=== PATIENT | male | born 1945 | race Hispanic/Latino ===

== ENCOUNTER 2023-07-14 09:57 | Day surgery (SDC) | payer MEDICARE, SELFPAY ==
--- NOTE | 2023-07-14 10:15 | PCM.HP.BLA ---
History and Physical Date of Admission: 07/14/23 7 M who presents to the office today for a consult. PCP OV 12.31.22 to established care. Previously diagnosed with GI who diagnosed with Crohn?s disease. Previous PCP note indicates he is well managed with use of Lialda.?Colonoscopy 02.26.21 out of state facility?5mm TA polyp; somewhat worse sigmoid stricture. Biopsy notes chronic RS colitis without dysplasia.?Stool?Calprotectin: 01.03.18 859; 08.10.18 521; 01.21.19 129; 12.28.20 387? Today reports that he continues to have some diarrhea and urgency. is concerned that he has been on the Lialda too long. Patient believes he is stable enough to go off of it. Denies any recent bloodwork. Has not had colonoscopy since 2020. ROS Const Constitutional: No fatigue, fever(s), frequent falls, headache(s) or weight change ENT ENT: No headache(s) or difficulty swallowing Cardio Cardiology: No leg pain with exertion Gastro GI: Positive for diarrhea; No abdominal pain, bloating, change in bowel habits, constipation, heartburn, difficulty swallowing, Vomiting blood/hematemesis, Blood in stool, nausea/dyspepsia or vomiting Musc Musculoskeletal: No abnormal gait, joint pain, back pain, joint swelling, muscle cramps, muscle weakness, numbness, stiffness, tingling, Arthritis, sciatica, leg pain at night or leg pain with exertion Skin Skin: No dry skin, lesions, itchy eyes or rash Neuro Neurology: No abnormal gait, dizziness, frequent falls, headache(s), numbness, tingling, tremor(s), Increased tone in limbs, paralysis or seizures Psych Psychiatric: No anxiety, No depression, No paranoia, No Behavioral Problems, No Compulsive Behavior, No hyperactivity, No inattentiveness, No obsessions/compulsions, No Temper Tantrums and No suicidal ideation Endo Endocrine: No fatigue or weight change Aller/Imm Allergy/Immunologic: No itchy eyes Gabe/Lymp Hematologic/Lymphatic: No easy bleeding or easy bruising Quality Reporting Tobacco Screening ([facility] 138) Smoking Status: Former smoker Assessment and Plan Assessment and Plan (1) Crohn's colitis: Status: Acute Qualifiers: Digestive disease complication type: without complication Qualified Code(s): K50.10 - Crohn's disease of large intestine without complications Plan He has a longstanding history of colonic Crohn's disease. It is unknown if he has small bowel Crohn's disease. We will check ESR, CRP and fecal lactoferrin, stool WBCs, stool for enteric pathogens and C. difficile. He will also continue current medicines as prescribed. I have examined the patient and the H&P has been reviewed. There are no clinical changes since date of exam.
[2023-07-14] MEDS: Lactated Ringers 1,000 ML 15 ML IV (10:32)
[2023-07-14 10:33] VITALS: BP 121/86; PULSE 88; RESP 18; TEMP 37; O2SAT 99; BMI 34.3
--- NOTE | 2023-07-14 11:00 | COLBX_PTH ---
PATIENT: SIA MENDIOLA LOC: EN U#:[id number] AGE/SX: 77/M ROOM: RE07/14/[address]: Dr. Enmanuel Michele DO : 1945 BED: DIS: 07/14/2023 SPEC #: [id number] RECD: 07/14/23 14:26 STATUS: CASSY DEVEN #: [id number] WILLAM: 07/14/23 11:[address]: Enmanuel Michele DEPT: SURGICAL PATHOLOGY RECD BY: Zoraida Auguste ENTERED: 07/15/23 09:19 SP TYPE: COLON BX OTHR DR: Dr. Britton Torres MD Tissues: A - Ileum, NOS B - Ascending colon C - Transverse colon D - Descending colon E - Sigmoid colon biopsy F - Rectum, NOS G - Sigmoid colon biopsy H - Anal region Procedures: Surgery Specimen Level IV HEADER OPERATION: Colonoscopy with biopsy PRE-OP DIAGNOSIS: Crohn's TISSUE SUBMITTED: A - Terminal ileum biopsy, B - Ascending colon biopsy, C - Transverse colon biopsy, D - Descending colon biopsy, E - Sigmoid colon biopsy, F - Rectal biopsy, G - Sigmoid stricture, H - Anal biopsy MICROSCOPIC DIAGNOSIS A. Terminal ileum, biopsy: No pathologic change. B. Ascending colon, biopsy: Focal acute colitis. C. Transverse colon, biopsy: No pathologic change. D. Descending colon, biopsy: No pathologic change. E. Sigmoid colon, biopsy: No pathologic change. F. Rectum, biopsy: Focal acute colitis. G. Sigmoid stricture, biopsy: Ulceration with associated acute and chronic inflammation, granulation and fibrinopurulent exudate. H. Anus, biopsy: Focal acute colitis. Fibrinopurulent material. AM:shahla 07/16/2023 MICROSCOPIC DESCRIPTION Slides are reviewed. GROSS DESCRIPTION A - Received in fixative is one container labeled with the patient's name and designated terminal ileum. The specimen consists of two irregular fragments of light devlin soft tissue that in aggregate measure 0.5 x 0.3 x 0.1 cm. The specimen is totally submitted in one cassette. B - Received in fixative is one container labeled with the patient's name and designated ascending colon. The specimen consists of multiple irregular fragments of light devlin soft tissue that in aggregate measure 1.0 x 0.3 x 0.1 cm. The specimen is totally submitted in one cassette. C - Received in fixative is one container labeled with the patient's name and designated transverse colon. The specimen consists of multiple irregular fragments of light devlin soft tissue that in aggregate measure 1.0 x 0.2 x 0.1 cm. The specimen is totally submitted in one cassette. D - Received in fixative is one container labeled with the patient's name and designated descending colon. The specimen consists of multiple irregular fragments of light devlin soft tissue that in aggregate measure 1.0 x 0.2 x 0.1 cm. The specimen is totally submitted in one cassette. E - Received in fixative is one container labeled with the patient's name and designated sigmoid colon. The specimen consists of two irregular fragments of light devlin soft tissue that in aggregate measure 0.6 x 0.5 x 0.1 cm. The specimen is totally submitted in one cassette. F - Received in fixative is one container labeled with the patient's name and designated rectal biopsy. The specimen consists of multiple irregular fragments of light devlin soft tissue that in aggregate measure 1.0 x 0.2 x 0.1 cm. The specimen is totally submitted in one cassette. G - Received in fixative is one container labeled with the patient's name and designated sigmoid stricture. The specimen consists of multiple irregular fragments of light devlin soft tissue that in aggregate measure 1.0 x 0.5 x 0.1 cm. The specimen is totally submitted in one cassette. H - Received in fixative is one container labeled with the patient's name and designated anal biopsy. The specimen consists of one irregular fragment of light devlin soft tissue that measures 0.5 x 0.5 x 0.1 cm. The specimen is totally submitted in one cassette. / AM:shahla 07/15/2023 TC:2 CPT: 06972 x8
[2023-07-14 11:02] LABS: Bedside Glucose 150 mg/dL (74-106)
[2023-07-14 11:56] VITALS: BP 121/86; BP 128/72; PULSE 61; RESP 16; TEMP 36.4; O2SAT 92
--- NOTE | 2023-07-14 11:57 | OP.COLON_ITS ---
Patient Name: iFdel Harrison Procedure Date: 07/14/2023 11:24 AM Date of : 1945 Age: 77 Procedure: Colonoscopy Indications: Crohn's disease of the small bowel and colon Providers: Enmanuel Michele DO Referring MD: Enmanuel Michele DO Medicines: Monitored Anesthesia Care Patient Profile: This is a 77 year old male. Refer to note in patient chart for documentation of history and physical. Last Colonoscopy: date unknown. Unable to locate last colonoscopy report. Complications: No immediate complications. Procedure: Pre-Anesthesia Assessment: - Prior to the procedure, a History and Physical was performed, and patient medications and allergies were reviewed. The patient is competent. The risks and benefits of the procedure and the sedation options and risks were discussed with the patient. All questions were answered and informed consent was obtained. Patient identification and proposed procedure were verified by the physician in the pre-procedure area. Mental Status Examination: alert and oriented. Airway Examination: normal oropharyngeal airway and neck mobility. Prophylactic Antibiotics: The patient does not require prophylactic antibiotics. Prior Anticoagulants: The patient has taken no anticoagulant or antiplatelet agents. After reviewing the risks and benefits, the patient was deemed in satisfactory condition to undergo the procedure. The anesthesia plan was to use monitored anesthesia care (MAC). Immediately prior to administration of medications, the patient was re-assessed for adequacy to receive sedatives. The heart rate, respiratory rate, oxygen saturations, blood pressure, adequacy of pulmonary ventilation, and response to care were monitored throughout the procedure. The physical status of the patient was re-assessed after the procedure. After I obtained informed consent, the scope was passed under direct vision. Throughout the procedure, the patient's blood pressure, pulse, and oxygen saturations were monitored continuously. The Colonoscope was introduced through the anus and advanced to the terminal ileum. The colonoscopy was performed without difficulty. The patient tolerated the procedure well. The quality of the bowel preparation was adequate. The terminal ileum, ileocecal valve, appendiceal orifice, and rectum were photographed. Scope In: 11:36:39 AM Scope Withdrawal Time 0 hours 11 minutes 18 seconds Scope Out: 11:50:19 AM Total Procedure Duration Time 0 hours 13 minutes 40 seconds Findings: The perianal and digital rectal examinations were normal. The Simple Endoscopic Score for Crohn's Disease was determined based on the endoscopic appearance of the mucosa in the following segments: - Ileum: Findings include aphthous ulcers less than 0.5 cm in size, less than 10% ulcerated surfaces, less than 50% of surfaces affected and no narrowings. Segment score: 3. - Right Colon: Findings include no ulcers present, no ulcerated surfaces, 50-75% of surfaces affected and no narrowings. Segment score: 2. - Transverse Colon: Findings include no ulcers present, no ulcerated surfaces, no affected surfaces and no narrowings. Segment score: 0. - Left Colon: Findings include large ulcers 0.5-2 cm in size, 10-30% ulcerated surfaces, less than 50% of surfaces affected and a single narrowing that can be passed. Segment score: 6. - Rectum: Findings include no ulcers present, no ulcerated surfaces, no affected surfaces and no narrowings. Segment score: 0. - Total SES-CD aggregate score: 11. Biopsies were taken with a cold forceps for histology. Verification of patient identification for the specimen was done. Estimated blood loss was minimal. Impression: - Simple Endoscopic Score for Crohn's Disease: 11, mucosal inflammatory changes secondary to Crohn's disease. Biopsied. Recommendation: - Discharge patient to home. - Resume previous diet. - Continue present medications. - Await pathology results. - Repeat colonoscopy in 1 year for surveillance. Procedure Code(s): --- Professional --- 10329, Colonoscopy, flexible; with biopsy, single or multiple CPT copyright 2021 [employer]. All rights reserved. The codes documented in this report are preliminary and upon dishwashing machine operator review may be revised to meet current compliance requirements. Enmanuel Michele DO 07/14/2023 11:56:39 AM This report has been signed electronically. Number of Addenda: 0 Note Initiated On: 07/14/2023 11:24 AM
--- NOTE | 2023-07-14 11:57 | OP.CCLET_ITS ---
07/14/2023 Britton Torres Re : Colonoscopy procedure for Fidel Harrison Dear Brian This procedure was performed on Friday, July 14, 2023. My impressions and recommendations are as follows: Impressions : - Simple Endoscopic Score for Crohn's Disease: 11, mucosal inflammatory changes secondary to Crohn's disease. Biopsied. Recommendations : - Discharge patient to home. - Resume previous diet. - Continue present medications. - Await pathology results. - Repeat colonoscopy in 1 year for surveillance. My findings are described in the full procedure note, which is enclosed. If I can be of further assistance, please feel free to contact me at . Sincerely, Enmanuel Michele, 07/14/2023 11:56:39 AM This report has been signed electronically.
[2023-07-14 12:00] VITALS: BP 117/61; BP 121/86; PULSE 76; RESP 16; O2SAT 95
[2023-07-14 12:05] VITALS: BP 121/86; BP 133/46; PULSE 67; RESP 16; O2SAT 98
[2023-07-14 12:10] VITALS: BP 121/86; BP 129/61; PULSE 64; RESP 16; TEMP 36.8; O2SAT 100
[2023-07-14 12:34] VITALS: BP 121/86
== END 2023-07-14 12:49 | disposition home or self-care (01) ==
LOC: EN 10:02 → AC 10:02
PROVIDERS: PCP Internal Medicine; Referring Provider Internal Medicine Gastroenterology; Visit Provider Internal Medicine Gastroenterology
PROC: 0DJD8ZZ Inspection of Lower Intestinal Tract, Via Natural or Artificial Opening Endoscopic (ICD-10-PCS; CPT 45378; principal; 2023-07-14 10:55)
DX: K50.10 Crohn's disease of large intestine without complications (principal); Z79.4 Long term (current) use of insulin; E11.9 Type 2 diabetes mellitus without complications; E78.5 Hyperlipidemia, unspecified; I10 Essential (primary) hypertension; Z87.891 Personal history of nicotine dependence; Z79.82 Long term (current) use of aspirin; Z79.84 Long term (current) use of oral hypoglycemic drugs; Z79.899 Other long term (current) drug therapy
CPT/HCPCS: 45380; 82962; 88305; J7120; J2405

== ENCOUNTER → 2023-08-15 | Outpatient (CLI) | payer MEDICARE, SELFPAY ==
--- NOTE | 2023-08-15 15:15 | CT_ITS ---
STUDY: CT ABDOMEN AND PELVIS WITH CONTRAST REASON FOR EXAM: Male, 77 years old. Crohn''s disease RADIATION DOSAGE (If Supplied By Facility): CTDIvol = ( 17.78 ) mGy, DLP = ( 1180.73 ) mGycm TECHNIQUE: Transaxial images were obtained from the dome of the diaphragm to the symphysis pubis with oral contrast. ml of Gastrografin and amp; 100mL Isovue-300 contrast was administered. Sagittal and coronal images were reconstructed. Individualized dose optimization techniques were used for this CT. COMPARISON: None. FINDINGS: There are chronic interstitial fibrotic changes of the lung bases. The visualized portions of the heart are within normal limits. No demonstrated abnormal bowel dilatation or small bowel obstruction. No free air or abscess or fluid collections are present. No inflammatory stranding is seen around the bowel loops. No visualized bowel wall thickening or alternating areas of dilatation and narrowing AKA skip lesions on the current study. No colonic diverticula are present. Normal liver. Normal gallbladder and extrahepatic biliary system. Normal spleen. Normal pancreas. Normal bilateral adrenal glands. Several small cysts are scattered throughout the left kidney which do not requiring additional imaging. Mild bilateral perinephric stranding is present likely due to chronic inflammation. No solid masses of the kidneys are present. No visualized hydronephrosis. No large radiopaque stones are present. Normal visualized stomach. Normal small intestine. Normal colon. The appendix is visualized and appears normal. There is diffuse atherosclerotic calcification of the abdominal aorta, without a demonstrated aneurysm. Normal inferior vena cava. Normal retroperitoneum. Normal urinary bladder. Normal abdominal wall. There are diffuse degenerative changes of the visualized lumbar spine. CT/Abdomen/Pelvis WITH Contrast IMPRESSION: 1. No demonstrated abnormal bowel dilatation or small bowel obstruction. No free air or abscess or fluid collections are present. No inflammatory stranding is seen around the bowel loops. No visualized bowel wall thickening or alternating areas of dilatation and narrowing AKA skip lesions on the current study. No colonic diverticula are present. Electronically Signed: Daniel Corona MD at 9:51 EST ,
[2023-08-15 15:33] LABS: CREATININE FINGERSTICK < 0.9 mg/dL (0.70-1.30); EGFR FINGERSTICK > 60.0000 mL/min (>60)
== END | disposition home or self-care (01) ==
PROVIDERS: PCP Internal Medicine; Referring Provider Internal Medicine Gastroenterology; Visit Provider Internal Medicine Gastroenterology
DX: K50.10 Crohn's disease of large intestine without complications (principal)
CPT/HCPCS: 74177; Q9967

== ENCOUNTER → 2024-02-16 | Outpatient (CLI) | payer MEDICARE, SELFPAY ==
[2024-02-16 15:50] LABS: Hemoglobin A1c 7.4 % (3.8-5.6)
[2024-02-16 16:07] LABS: Rubella IgG Reactive (Nonreactive)
[2024-02-18 14:10] LABS: Anti-Centromere B Ab >8.0 AI (0.0-0.9); Anti-Chromatin 0.2 AI (0.0-0.9); Anti-Jo <0.2 AI (0.0-0.9); Anti-Mitochondrial AB <20.0 Units (0.0-20.0); Anti-Scleroderma-70 AB <0.2 AI (0.0-0.9); Anti-dsDNA Ab <1 IU/mL (0-9); RNP Ab <0.2 AI (0.0-0.9); SJOGREN'S Anti-SS-A test < 0.2 AI (0.0-0.9); SJOGREN'S Anti-SS-B test < 0.2 AI (0.0-0.9); Smith Ab <0.2 AI (0.0-0.9)
[2024-02-19 21:07] LABS: Anti-Smooth Muscle ABS 4 Units (0-19); B. pertussis IgG 3.56 index (0.00-0.94); Mumps Antibody, IgM < 0.80 AU (0.00-0.79); QNTFERON TB Mitogen Value > 10.00 IU/mL (.); QNTFERON TB Nil Value 0.04 IU/mL (.); QNTFERON TB1+ Ag Value 0.07 IU/mL (.); QNTFERON TB2+ Ag Value 0.07 IU/mL (.); QNTIFERON TB Positive Criteria Negative (Negative); V-Zoster IgG (Immunity) 1265 index (Immune >165)
== END | disposition home or self-care (01) ==
PROVIDERS: Internal Medicine Gastroenterology; PCP Internal Medicine; Referring Provider Internal Medicine; Visit Provider Internal Medicine
DX: E11.69 Type 2 diabetes mellitus with other specified complication (principal)
CPT/HCPCS: 36415; 83036; 83516; 86225; 86235; 86480; 86615; 86735; 86762; 86787

== ENCOUNTER → 2024-04-06 | Outpatient (CLI) | payer MEDICARE, SELFPAY ==
[2024-04-06 12:49] VITALS: PULSE 104; PULSE 107; PULSE 74; PULSE 82; PULSE 86; PULSE 90; PULSE 94; PULSE 95; O2SAT 92; O2SAT 93; O2SAT 94; O2SAT 98
--- NOTE | 2024-04-06 12:52 | CPS ---
PATIENT ARRIVED BY WHEELCHAIR AND USED HIS CANE FOR THE WALK TEST. HE DENIED ANY SIGNIFICANT SHORTNESS OF BREATH DURING TESTING. HE TOOK 1 SHORT REST BREAK FOR LEG WEAKNESS/FATIGUE HALF WAY THROUGH TESTING AND CARRIED CONVERSATION THROUGHOUT TESTING. HR RECOVERED QUICKLY UPON REST. TESTING WAS DONE WITH PATIENT ON ROOM AIR.
--- NOTE | 2024-04-07 09:35 | WT_ITS ---
PSN 6 Minute Walk Test 6 Minute Walk Test 6 Minute Walk Test: 6 Minute Walk Test PSN:6-Minute Walk Test Start: 04/06/24 12:49 Freq: Status: Active Protocol: RESP.6MINW Document 04/06/24 12:49 COUNT INCLUDES THE [facility] (Rec: 04/06/24 12:57 COUNT INCLUDES THE [facility] [id number]) 6 Minute Walk Test Date Performed 04/06/24 Time Performed 12:30 Height 5 ft 8 in Weight: 223 lb Weight in Pounds 223.[address]: Dinh Reyes Assistive device used: Cane Pre-test Oxygen Delivery Method Room Air Pulse Ox (%) 98 Pulse Rate (60-100 beats/min) 74 Dyspnea Sae Scale (0-10) 0 1st minute Oxygen Delivery Method Room Air Pulse Ox (%) 94 Pulse Rate (60-100 beats/min) 86 Dyspnea Sae Scale (0-10) 0 Number of Rests Taken 0 2nd minute Oxygen Delivery Method Room Air Pulse Ox (%) 93 Pulse Rate (60-100 beats/min) 90 Dyspnea Sae Scale (0-10) 0 Number of Rests Taken 0 3rd minute Oxygen Delivery Method Room Air Pulse Ox (%) 93 Pulse Rate (60-100 beats/min) 94 Dyspnea Sae Scale (0-10) 1 Number of Rests Taken 1 4th minute Oxygen Delivery Method Room Air Pulse Ox (%) 94 Pulse Rate (60-100 beats/min) 95 Dyspnea Sae Scale (0-10) 1 Number of Rests Taken 0 5th minute Oxygen Delivery Method Room Air Pulse Ox (%) 94 Pulse Rate (60-100 beats/min) 104 H Dyspnea Sae Scale (0-10) 1 Number of Rests Taken 0 6th minute Oxygen Delivery Method Room Air Pulse Ox (%) 92 Pulse Rate (60-100 beats/min) 107 H Dyspnea Sae Scale (0-10) 2 Number of Rests Taken 0 Post-test Oxygen Delivery Method Room Air Pulse Ox (%) 98 Pulse Rate (60-100 beats/min) 82 Dyspnea Sae Scale (0-10) 0 Full Laps Walked 9 Partial Lap, Number of Tiles Walked 26 Total Distance Walked (ft) 557 04/06/24 12:52 Cardiopulmonary Services by Isamar Grant PATIENT ARRIVED BY WHEELCHAIR AND USED HIS CANE FOR THE WALK TEST. HE DENIED ANY SIGNIFICANT SHORTNESS OF BREATH DURING TESTING. HE TOOK 1 SHORT REST BREAK FOR LEG WEAKNESS/FATIGUE HALF WAY THROUGH TESTING AND CARRIED CONVERSATION THROUGHOUT TESTING. HR RECOVERED QUICKLY UPON REST. TESTING WAS DONE WITH PATIENT ON ROOM AIR. Initialized on 04/06/24 12:52 - END OF NOTE Interpretation Interpretation: The patient ambulated 557 feet over the course of 6 minutes beginning on room air with the use of a cane. Pretesting oxygen saturation was noted to be 98% on room air. With ambulation, the [place] oxygen saturation was 92%. This represents a significant exertional oxygen desaturation. Recommendations Recommendations: There is no indication for the use of supplemental oxygen at this time. However, close interval follow-up was recommended, given the degree of oxygen desaturation noted during this study.
== END | disposition home or self-care (01) ==
LOC: PSN 12:22
PROVIDERS: PCP Internal Medicine; Referring Provider Internal Medicine Critical Care Medicine; Visit Provider Internal Medicine Critical Care Medicine
DX: J44.9 Chronic obstructive pulmonary disease, unspecified (principal)
CPT/HCPCS: 94618

== ENCOUNTER 2024-09-01 11:25 | Day surgery (SDC) | payer MEDICARE, SELFPAY ==
--- NOTE | 2024-09-01 | COLBX_PTH ---
PATIENT: SIA MENDIOLA LOC: EN U#:[id number] AGE/SX: 78/M ROOM: RE09/01/[address]: Dr. Enmanuel Michele DO : 1945 BED: DIS: 09/01/2024 SPEC #: [id number] RECD: 09/01/24 14:13 STATUS: CASSY CARVALHO #: [id number] WILLAM: 09/01/24 00:[address]: Enmanuel Michele DEPT: SURGICAL PATHOLOGY RECD BY: Chris West ENTERED: 09/01/24 14:14 SP TYPE: COLON BX OTHR DR: Dr. Britton Torres MD Tissues: A - COLON BIOPSY B - Sigmoid colon biopsy C - Right colon D - Transverse colon E - Left colon F - Rectum, NOS Procedures: Surgery Specimen Level IV HEADER OPERATION: Colonoscopy with biopsy and polypectomy and dilation PRE-OP DIAGNOSIS: Crohn's colitis TISSUE SUBMITTED: A- Colonic stricture biopsy, B- Sigmoid polyp, C- Right side of colon biopsy, D- Transverse colon biopsy, E- Left side colon biopsy, F- Rectum biopsy MICROSCOPIC DIAGNOSIS A. Colonic stricture, biopsy: Focal active colitis. See comment. B. Sigmoid polyp, biopsy: Inflammatory polyp with ulceration, granulation associated with acute and chronic inflammation. See comment. C. Right side of colon, biopsy: Chronic active colitis pattern of injury with minimal activity. No evidence of dysplasia. See comment. D. Transverse colon, biopsy: Chronic active colitis pattern of injury with mild activity. See comment. E. Left side colon, biopsy: Chronic active colitis pattern of injury with focal ulceration, granulation and acute and chronic inflammation. No evidence of dysplasia. F. Rectum, biopsy: Chronic colitis pattern of injury with no activity. No evidence of dysplasia. Scott 09/03/2024 COMMENT A. Sections show focal cryptitis with glandular distortion. No transmural lymphoid aggregates are seen and no fissuring ulcers are identified. Clinical correlation is suggested. B. Sections show hyperplastic epithelium with ulceration and granulation and vascular ectasia. No evidence of dysplasia. Clinical correlation is suggested. C, D. Rare crypt abscess and cryptitis is identified. No transmural lymphoid aggregates are seen and no granulomas are identified. There is no evidence of dysplasia. MICROSCOPIC DESCRIPTION Slides are reviewed. GROSS DESCRIPTION A. Received in fixative is one container labeled with the patient's name and designated Colonic stricture biopsy. The specimen consists of one irregular fragment of light devlin soft tissue that measures 0.3 x 0.2 x 0.1 cm. The specimen is totally submitted in one cassette. B. Received in fixative is one container labeled with the patient's name and designated Sigmoid polyp. The specimen consists of one irregular fragment of light devlin soft tissue that measures 1.0 x 0.5 x 0.3 cm. The specimen is totally submitted in one cassette. C. Received in fixative is one container labeled with the patient's name and designated Right side of colon biopsy. The specimen consists of multiple irregular fragments of light devlin soft tissue that in aggregate measure 2.0 x 0.3 x 0.1 cm. The specimen is totally submitted in one cassette. D. Received in fixative is one container labeled with the patient's name and designated Transverse colon biopsy. The specimen consists of multiple irregular fragments of light devlin soft tissue that in aggregate measure 1.0 x 0.6 x 0.1 cm. The specimen is totally submitted in one cassette. E. Received in fixative is one container labeled with the patient's name and designated Left side of colon biopsy. The specimen consists of multiple irregular fragments of light devlin soft tissue that in aggregate measure 1.0 x 0.3 x 0.1 cm. The specimen is totally submitted in one cassette. F. Received in fixative is one container labeled with the patient's name and designated Rectum biopsy. The specimen consists of multiple irregular fragments of light devlin soft tissue that in aggregate measure 1.0 x 0.3 x 0.1 cm. The specimen is totally submitted in one cassette. 09/01/2024 TC:2 [facility]:[id number]
[2024-09-01 11:44] VITALS: BP 135/66; PULSE 83; RESP 16; TEMP 36.8; O2SAT 97; BMI 33.3
--- NOTE | 2024-09-01 12:30 | HP.PCM_ITS ---
History and Physical Date of Admission: 09/01/24 SIA MENDIOLA, is a 78 M who presents to the office today for follow up. PCP OV 12.31.22 to established care. Previously diagnosed with GI who diagnosed with Crohn?s disease. Previous PCP note indicates he is well managed with use of Lialda. ? Colonoscopy 02.26.21 [place] [facility] 5mm TA polyp; somewhat worse sigmoid stricture. Biopsy notes chronic RS colitis without dysplasia. ? Stool Calprotectin: 01.03.18 859; 11.18 521; 01.21. 129; 12.28.20 387 *[facility] established 04.18.23 with loose stools and urgency. has concerns rega rding extended length of lialda use but he does not feel he is stable enough to stop. Colonoscopy 07.14.23 Active Crohn?s disease of ileum (segment score 3), right colon (segment score 2), transverse colon (segment score 0), left colon (segment score 6), rectum (segment score 0) with total SES-CD aggregate score 11 with active colitis seen on pathology. Contact 08.04.23 with results and need for biochemical, stool and imaging Biochemical [facility] CBC (anemic), CMP, CRP, LDH, ANCA, GAME, CASS (atypical restricted mobility), celiac, Entyvio ab without pertinent abnormality ESR H37, TOM 1:640/centromere ab +, Crohn?s (apANCA, AMCA) Stool [facility] C.difficile, EP, O/P WNL? Elastase L100, calprotectin H174, lactoferrin + CT abd/pel 08.16.23 fibrotic lung changes; benign renal cysts with mild perinephritic chronic inflammatory changes Contact 09.01.23 with results. Will get additional bloodwork performed (sent to [facility]). PCP office also contacted and have the CT results for review/attention ? Biochemical [facility] Titers, Entyvio ab/titer, AMA, ASM, TOM comp not completed. ? Biochemical 12.7.23 (PCP) CASS + with M-spike OV 12.15.23 reports he is doing well overall. PCP will be repeating bloodwork in January. Nephrology seen yesterday who added Oliversuzette OV 5..24 pt reports that he got the approval for Stelara but has not started it yet. Pt reports 3-4 bm a day, usually about 20 minutes after he has eaten something. Pt continues with mesalamine at this time. OV 11..24 pt reports continued diarrhea that has improved recently due to starting Cholestyramine BID. Pt continues with Stelara Q8W. ROS Const Constitutional: Positive for fatigue, headache(s) and weight change (weight loss); No fever(s) ENT ENT: Positive for headache(s); No difficulty swallowing Gastro GI: Positive for bloating, heartburn and excessive flatus; No abdominal pain, belching, change in bowel habits, change in stool character, coffee ground emesis, constipation, cramping, diarrhea, difficulty swallowing, feeling full early, incontinent of stools, Vomiting blood/hematemesis, Blood in stool, loose stools, Black,tarry stools, nausea/dyspepsia, pain with swallowing, vomiting or other Musc Musculoskeletal: Positive for abnormal gait and muscle weakness; No joint pain Skin Skin: Positive for dry skin and lesions; No yellowing of the eye or itchy eyes Neuro Neurology: Positive for abnormal gait and headache(s) Psych Psychiatric: Positive for anxiety and No depression Endo Endocrine: Positive for fatigue and weight change (weight loss) Aller/Imm Allergy/Immunologic: No itchy eyes Gabe/Lymp Hematologic/Lymphatic: Positive for easy bruising; No easy bleeding Exam Const General: cooperative and comfortable Nutritional Appearance: average body habitus and well nourished [facility] Head: normal to inspection Ears: hearing grossly normal bilaterally Nose: external nose normal Face and sinus: normal facial exam Mouth: oral mucosae normal Throat: posterior oropharynx normal Eyes General: appearance normal, both eyes and all related structures Neck Neck: normal visual inspection Chest Chest palpation & inspection: normal inspection of the chest and normal palpation of entire chest wall Resp Effort & Inspection: normal respiratory effort Auscultation: Bilateral: Clear to Auscultation Cardio Palpation: normal PMI Rate: regular rate Rhythm: regular rhythm GI Inspection: normal to inspection Auscultation: normal bowel sounds Percussion: normal to percussion Palpation: no hepatosplenomegaly Skin General: no rashes or lesions noted Neuro General: patient alert Extrem General: normal to inspection Psych Affect: normal affect Assessment and Plan Assessment and Plan (1) Crohn's colitis: Status: Inactive Qualifiers: Digestive disease complication type: without complication Qualified Code(s): K50.10 - Crohn's disease of large intestine without complications Plan He has a longstanding history of colonic Crohn's disease. He has been refractory to 5-ASA therapy being that he has persistent diarrhea with episodes of fecal incontinence. He has no known extraintestinal manifestation of inflammatory bowel disease. He is not steroid na?ve. He underwent colonoscopy: The perianal and digital rectal examinations were normal. The Simple Endoscopic Score for Crohn's Disease was determined based on the endoscopic appearance of the mucosa in the following segments: - Ileum: Findings include aphthous ulcers less than 0.5 cm in size, less than 10% ulcerated surfaces, less than 50% of surfaces affected and no narrowings. Segment score: 3. - Right Colon: Findings include no ulcers present, no ulcerated surfaces, 50-75% of surfaces affected and no narrowings. Segment score: 2. - Transverse Colon: Findings include no ulcers present, no ulcerated surfaces, no affected surfaces and no narrowings. Segment score: 0. - Left Colon: Findings include large ulcers 0.5-2 cm in size, 10-30% ulcerated surfaces, less than 50% of surfaces affected and a single narrowing that can be passed. Segment score: 6. - Rectum: Findings include no ulcers present, no ulcerated surfaces, no affected surfaces and no narrowings. Segment score: 0. - Total SES-CD aggregate score: 11. Biopsies were taken with a cold forceps for histology. Verification of patient identification for the specimen was done. Estimated blood loss was minimal. Impression: - Simple Endoscopic Score for Crohn's Disease: 11, mucosal inflammatory changes secondary to Crohn's disease. Biopsied. His pathology from his colonoscopy was consistent with chronic active Crohn's disease. His ESR, CRP along with fecal lactoferrin and fecal calprotectin were all elevated. His stool for enteric pathogens and C. difficile were negative. He is currently on 5-ASA therapy will be held at 2.4 mg p.o. twice daily. He still has not 4-5 bowel movements a day with breakthrough symptoms. After long talk with him and his from recommend Stelara therapy. He is okay with this plan. We will continue on cholestyramine therapy for now. His Stelara is helping. He is scheduled to have a colonoscopy on 08/25/2024 so we can assess his Crohn's disease. I have examined the patient and the H&P has been reviewed. There are no clinical changes since date of exam.
[2024-09-01 12:33] VITALS: BP 135/66; PULSE 83; RESP 16; TEMP 36.8; O2SAT 97
--- NOTE | 2024-09-01 12:33 | PRE.ANES_ITS ---
ASA Classification* ASA Classification ASA Classification: 2 Assessment & Plan Anesthesia* Anesthesia Assessment Anesthesia Assessment: Discussed sedation and/or anesthesia options, risks, benefits, and alternatives with patient/parents/legal guardian/POA. Questions invited. The patient/parents/legal guardian/POA seems to understand and agrees to proceed with anesthesia plan. Reviewed the physical assessment, medical history, allergy history and patient home medications list prior to surgery/procedure/anesthetic and documented any changes. Performed airway and anesthesia risk assessments. Anesthesia Type Anesthesia Type: MAC Anesthesia Focused Assessment* Temperature: 98.3 F Pulse Rate: 83 Blood Pressure: 135/66 Respiratory Rate: 16 Pulse Ox: 97 Airway Assessment Mouth opens: >3 cm Mallampati Score: II Focused Labs Anesthesia Preop lab: CBC CHEMISTRY POC Glucose 150 mg/dL (74-106) H 07/14/23 10:29 COAG Pre-Assessment Diagnosis/Proposed Procedure Planned Operative Procedure(s): COLONOSCOPY Anesthesia History Anesthesia History - environmental services specialist: Anesthesia History - environmental services specialist Hx Hospitalization No 08/31/24 10:46 Any Problems With Anesthesia No 08/31/24 10:46 Cholinesterase deficiency No 08/31/24 10:46 You/Your Family Experience No 08/31/24 10:46 fever (hyperthermia) with Relationship Recent Exposure to Contagious No 09/01/24 11:44 Disease Does patient have nerve No 08/31/24 10:46 stimulator Patient instructed to have device shut off --Does patient have Pacemaker No 09/01/24 11:44 or ICD? When Was Last Pacemaker Check QUESTION #4 FULL TEXT: You/Your Family Experience fever (hyperthermia) with Anesthesia Last Oral Intake Last Oral intake: Last Oral Intake NPO since 09:00 09/01/24 11:44 Meds taken in AM with sips of water? Meds patient instructed to take am of surgery PONV PONV - environmental services specialist: PONV - environmental services specialist Female No 08/31/24 10:46 HX of Motion Sickness No 08/31/24 10:46 HX of N/V After Surgery No 08/31/24 10:46 Non-Smoker Yes 08/31/24 10:46 Duration of Surgery greater No 08/31/24 10:46 than 60 minutes Number of Risk Factors 1 08/31/24 10:46 PONV Score Low Risk 08/31/24 10:46 Height & Weight Height & Weight: Anesthesia: Height & Weight Height 5 ft 8 in 09/01/24 11:44 Weight: 99.337 kg 09/01/24 11:44 Body Mass Index (BMI) 33.3 09/01/24 11:44 Respiratory Assessment Respiratory Assessment - environmental services specialist: Respiratory Tract Infection Hx - environmental services specialist Hx Respiratory Tract Infection No 08/31/24 10:46 STOP Sleep Apnea STOP Sleep Apnea - environmental services specialist: STOP Sleep Apnea - environmental services specialist Hx Hypertension Yes 08/31/24 10:46 Hx Sleep Apnea No 08/31/24 10:46 CPAP BIPAP Do you snore loudly (louder Yes 08/31/24 10:46 than talking or can be heard Do you often feel tired/ No 08/31/24 10:46 fatigued/ sleepy during daytime? Has anyone observed you stop No 08/31/24 10:46 breathing during sleep? STOP Results Positive 08/31/24 10:46 QUESTION #5 FULL TEXT : Do you snore loudly (louder than talking or can be heard through closed doors)? Tobacco Use History Tobacco Use History - environmental services specialist: Tobacco Use History - environmental services specialist Tobacco Use Smoking Status Former smoker 08/31/24 10:46 Hx Tobacco Use No 08/31/24 10:46 Years Smoking Packs Smoked per Day Smoking Cessation Date was No - quit smoking greater 08/31/24 10:46 within the last 15 years than 15 years ago Hx Smoking Cessation Date 10/06/94 08/31/24 10:46 Hx Smoking Cessation Counseling Hematologic Medial History Hematologic Hx - environmental services specialist: Hematologic Medical Hx - swimming pool servicer Hx of Blood Transfusion Yes 08/31/24 10:46 Hx of Transfusion in last 3 No 08/31/24 10:46 Months Date of Last Transfusion (if within last 3 months) Ever experience any problems No 08/31/24 10:46 with transfusion(s)? Specify any problems Hx of Preganancy in last 3 N/A 08/31/24 10:46 Months Nurse Filling Out Transfusion [email or web address] 08/31/24 10:46 & Questions: Date: 08/31/24 08/31/24 10:46 Time: 10:50 08/31/24 10:46 Patient unable to answer at this time (ie. confused, unrespo /Reproduction History /Reproductive History - environmental services specialist: /Reproductive Hx- environmental services specialist Hx Now No 08/31/24 10:46 Gestational Age (in weeks): EDC: Hx Hx Para Hx Section SAB No 08/31/24 10:46 [facility] Medical History Wears dentures Arthritis Ambulates with cane Low iron Back pain Dietary restriction Former smoker History of edema Decreased dorsalis pedis pulse HTN (hypertension) Lower extremity weakness HLD (hyperlipidemia) Type 2 diabetes mellitus without complications Home Medications ?Medication ?Instructions ?Recorded ?Last Taken ?Type aspirin 81 mg tablet,delayed 81 mg PO DAILY 01/21/23 08/30/24 History release atorvastatin 40 mg tablet 40 mg PO DAILY 01/21/23 Unknown History ferrous sulfate 325 mg (65 mg 325 mg PO DAILY 01/21/23 Unknown History iron) tablet glipizide 10 mg tablet 10 mg PO BID 01/21/23 Unknown History lisinopril 20 1 tab PO DAILY 01/21/23 Unknown History mg-hydrochlorothiazide 25 mg tablet mecobalamin (vitamin B12) 1,000 1,000 mcg PO DAILY 01/21/23 Unknown History mcg chewable tablet metformin 1,000 mg tablet 1,000 mg PO BID 01/21/23 Unknown History riboflavin (vitamin B2) 50 mg 50 mg PO DAILY 07/09/23 Unknown History tablet (Vitamin B-2) dapagliflozin propanediol 10 mg 10 mg PO QDAY 03/25/24 Unknown History tablet (Farxiga) cholestyramine (with sugar) 4 gram 4 ea PO BID 08/09/24 Unknown History oral powder Allergy/AdvReac Type Severity Reaction Status Date / Time No Known Allergies Allergy Verified 09/01/24 11:38 Surgical History Hx of colonoscopy History of arthroscopic surgery of shoulder H/O discectomy Social History Smoking Status: Former smoker alcohol intake: never Review of Systems (Anesthesia) ROS Narrative System reviewed and no additional complaints, except as documented.
[2024-09-01 13:30] LABS: Bedside Glucose 135 mg/dL (74-106)
[2024-09-01 13:41] VITALS: BP 135/66; BP 91/40; PULSE 90; RESP 16; TEMP 36.3; O2SAT 99
--- NOTE | 2024-09-01 13:44 | OP.COLON_ITS ---
Patient Name: Fidel Harrison Procedure Date: 09/01/2024 1:04 PM Date of : 1945 Age: 78 Procedure: Colonoscopy Indications: Crohn's disease of the small bowel and colon Providers: Enmanuel Michele DO Referring MD: Britton Torres Medicines: Monitored Anesthesia Care Patient Profile: This is a 78 year old male. Refer to note in patient chart for documentation of history and physical. Last Colonoscopy: within the past 3 years. Complications: No immediate complications. Procedure: Pre-Anesthesia Assessment: - Prior to the procedure, a History and Physical was performed, and patient medications and allergies were reviewed. The patient is competent. The risks and benefits of the procedure and the sedation options and risks were discussed with the patient. All questions were answered and informed consent was obtained. Patient identification and proposed procedure were verified by the physician in the pre-procedure area. Mental Status Examination: alert and oriented. Prophylactic Antibiotics: The patient does not require prophylactic antibiotics. Prior Anticoagulants: The patient has taken no anticoagulant or antiplatelet agents except for NSAID medication. ASA Grade Assessment: II - A patient with mild systemic disease. After reviewing the risks and benefits, the patient was deemed in satisfactory condition to undergo the procedure. The anesthesia plan was to use monitored anesthesia care (MAC). Immediately prior to administration of medications, the patient was re-assessed for adequacy to receive sedatives. The heart rate, respiratory rate, oxygen saturations, blood pressure, adequacy of pulmonary ventilation, and response to care were monitored throughout the procedure. The physical status of the patient was re-assessed after the procedure. After I obtained informed consent, the scope was passed under direct vision. Throughout the procedure, the patient's blood pressure, pulse, and oxygen saturations were monitored continuously. The Colonoscope was introduced through the anus and advanced to the terminal ileum. The colonoscopy was performed without difficulty. The patient tolerated the procedure well. The quality of the bowel preparation was adequate. The terminal ileum was photographed. Scope In: 1:13:17 PM Scope Out: 1:34:52 PM Total Procedure Duration Time 0 hours 21 minutes 35 seconds Findings: The perianal and digital rectal examinations were normal. A benign-appearing, intrinsic severe stenosis measuring 10 cm (in length) x 3 mm (inner diameter) was found at 30 cm proximal to the anus and was traversed after dilation. Biopsies were taken with a cold forceps for histology. Verification of patient identification for the specimen was done. Estimated blood loss was minimal. A TTS dilator was passed through the scope. Dilation with a 20 mm colonic balloon dilator was performed. The dilation site was examined and showed moderate improvement in luminal narrowing. Estimated blood loss was minimal. Stool was found in the sigmoid colon, in the descending colon and in the transverse colon. Fluid aspiration was performed through the scope suction channel. The amount of fluid collected was 30 mL. Sample(s) were sent for bacterial cultures, Clostridium difficile, Gram stain and ova and parasites. Verification of patient identification for the specimen was done. Estimated blood loss was minimal. The Simple Endoscopic Score for Crohn's Disease was determined based on the endoscopic appearance of the mucosa in the following segments: - Ileum: Findings include no ulcers present, no ulcerated surfaces, no affected surfaces and no narrowings. Segment score: 0. - Right Colon: Findings include aphthous ulcers less than 0.5 cm in size, greater than 30% ulcerated surfaces, greater than 75% of surfaces affected and no narrowings. Segment score: 7. - Transverse Colon: Findings include ulcers greater than 2 cm in size, greater than 30% ulcerated surfaces, 50-75% of surfaces affected, no narrowings and no ulcers present, no ulcerated surfaces, no affected surfaces and no narrowings. Segment score: 8. - Left Colon: Findings include ulcers greater than 2 cm in size, greater than 30% ulcerated surfaces, greater than 75% of surfaces affected and narrowing(s) that cannot be passed. Segment score: 12. - Rectum: Findings include aphthous ulcers less than 0.5 cm in size, 10-30% ulcerated surfaces, 50-75% of surfaces affected, no narrowings and no ulcers present, no ulcerated surfaces, no affected surfaces and no narrowings. Segment score: 5. - Total SES-CD aggregate score: 32. Biopsies were taken with a cold forceps for histology. Verification of patient identification for the specimen was done. Estimated blood loss was minimal. The terminal ileum appeared normal. An 8 mm polyp was found in the recto-sigmoid colon. The polyp was semi-pedunculated. The polyp was removed with a hot snare. Resection and retrieval were complete. Verification of patient identification for the specimen was done. Estimated blood loss was minimal. Impression: - Stricture at 30 cm proximal to the anus. Biopsied. Dilated. - Stool in the sigmoid colon, in the descending colon and in the transverse colon. Fluid aspiration performed. - Simple Endoscopic Score for Crohn's Disease: 32, mucosal inflammatory changes secondary to Crohn's disease. Biopsied. - The examined portion of the ileum was normal. Recommendation: - Discharge patient to home. - Resume previous diet. - Continue present medications. - Await pathology results. - Repeat colonoscopy in 1 year to assess disease activity. Procedure Code(s): --- Professional --- 46371, Colonoscopy, flexible; with removal of tumor(s), polyp(s), or other lesion(s) by snare technique 31383, Colonoscopy, flexible; with transendoscopic balloon dilation 36801, 59, Colonoscopy, flexible; with biopsy, single or multiple CPT copyright 2021 [employer]. All rights reserved. The codes documented in this report are preliminary and upon control manager review may be revised to meet current compliance requirements. Enmanuel Michele DO 09/01/2024 1:44:09 PM This report has been signed electronically. Number of Addenda: 0 Note Initiated On: 09/01/2024 1:04 PM
--- NOTE | 2024-09-01 13:44 | OP.CCLET_ITS ---
09/01/2024 Britton Torres Re : Colonoscopy procedure for Fidel Harrison Dear Brian This procedure was performed on Sunday, September 01, 2024. My impressions and recommendations are as follows: Impressions : - Stricture at 30 cm proximal to the anus. Biopsied. Dilated. - Stool in the sigmoid colon, in the descending colon and in the transverse colon. Fluid aspiration performed. - Simple Endoscopic Score for Crohn's Disease: 32, mucosal inflammatory changes secondary to Crohn's disease. Biopsied. - The examined portion of the ileum was normal. Recommendations : - Discharge patient to home. - Resume previous diet. - Continue present medications. - Await pathology results. - Repeat colonoscopy in 1 year to assess disease activity. My findings are described in the full procedure note, which is enclosed. If I can be of further assistance, please feel free to contact me at . Sincerely, Enmanuel Michele, 09/01/2024 1:44:09 PM This report has been signed electronically.
--- NOTE | 2024-09-01 13:44 | PCM.POST.ANE ---
Anesthesia: Postop Eval I Current Vital Signs Temperature: 97.2 F Pulse Rate: 87 Blood Pressure: 91/40 Respiratory Rate: 16 Pulse Ox: 100 Oxygen Delivery Method: Room Air Assessment Airway patent: Yes Spontaneous unlabored respirations: Yes Mental status: Awake and Calm nausea: No Vomiting: No Anesthesia Complication: No Fluid Hydration Crystalloid volume administer (ml): 60 Total IV fluid infused: 60 Progress Note Anesthesia document: Postop Eval 1 completed: Yes
[2024-09-01 13:45] VITALS: BP 100/55; BP 135/66; BP 91/40; PULSE 87; PULSE 95; RESP 16; TEMP 36.2; O2SAT 100; O2SAT 95
[2024-09-01 13:50] VITALS: BP 118/57; BP 135/66; PULSE 90; RESP 16; TEMP 36.1; O2SAT 97
--- NOTE | 2024-09-01 13:59 | PCM.POSTANE2 ---
Anesthesia Postop Eval I Sum Postop Eval Completion status Anesthesia document: Postop Eval 1 completed: Yes Anesthesia Postop Eval I Summary Anesthesia Postop Eval I Summary: Anesthesia Postop Eval I: Assessment Summary Airway patent Yes 09/01/24 13:45 [email or web address] Spontaneous unlabored Yes 09/01/24 13:45 [email or web address] respirations Mental status Awake,Calm 09/01/24 13:45 [email or web address] nausea No 09/01/24 13:45 [email or web address] Vomiting No 09/01/24 13:45 [email or web address] Anesthesia Postop Eval I: Fluid Summary Crystalloid volume administer 60 09/01/24 13:45 [email or web address] (ml) Colloids volume administered ( ml) Blood Product volume administered (ml) Total IV fluid infused 60 09/01/24 13:45 [email or web address] Anesthesia Postop Eval I: Summary Notes Anesthesia Complication No 09/01/24 13:45 [email or web address] Anesthesia Complication Comment: Post-operative progress note Anesthesia: Postop Eval II Evaluation Mental status: Awake Pain Level: 0 nausea: No Vomiting: No
[2024-09-01 14:12] VITALS: BP 135/66
== END 2024-09-01 14:36 | disposition home or self-care (01) ==
LOC: EN 11:27 → AC 11:28
PROVIDERS: PCP Internal Medicine; Referring Provider Internal Medicine; Visit Provider Internal Medicine Gastroenterology
PROC: 0DJD8ZZ Inspection of Lower Intestinal Tract, Via Natural or Artificial Opening Endoscopic (ICD-10-PCS; CPT 45378; principal; 2024-09-01 12:25)
DX: K50.118 Crohn's disease of large intestine with other complication (principal); E11.9 Type 2 diabetes mellitus without complications; K63.5 Polyp of colon; I10 Essential (primary) hypertension; E78.5 Hyperlipidemia, unspecified; Z79.82 Long term (current) use of aspirin; Z79.84 Long term (current) use of oral hypoglycemic drugs; Z79.899 Other long term (current) drug therapy; Z87.891 Personal history of nicotine dependence
CPT/HCPCS: 45385; 45380; 45386; 82962; 87493; 87506; 88305; A4216; J2405

== ENCOUNTER → 2025-02-09 | Outpatient (CLI) | payer MEDICARE, SELFPAY ==
[2025-02-09 18:15] LABS: CRP < 3.00 mg/L (0.0-3.0)
[2025-02-09 19:25] LABS: Erythrocyte Sedimentation Rate 17 mm/hr (0-20)
== END | disposition home or self-care (01) ==
LOC: LAB 16:28
PROVIDERS: PCP Internal Medicine; Referring Provider Internal Medicine Gastroenterology; Visit Provider Internal Medicine Gastroenterology
DX: K50.10 Crohn's disease of large intestine without complications (principal)
CPT/HCPCS: 36415; 85652; 86140

== ENCOUNTER → 2025-02-11 | Outpatient (CLI) | payer MEDICARE, SELFPAY ==
[2025-02-15 08:08] LABS: Calprotectin, Stool 254 ug/g (0-120)
== END | disposition home or self-care (01) ==
LOC: LABSPEC 15:53
PROVIDERS: PCP Internal Medicine
DX: K50.10 Crohn's disease of large intestine without complications (principal)
CPT/HCPCS: 83630; 83993

== ENCOUNTER → 2025-03-07 | Outpatient (CLI) | payer MEDICARE, SELFPAY ==
[2025-03-07 17:34] LABS: Absolute Lymphocyte Count 2.13 X10^3/uL (0.83-4.51); Absolute Neutrophil Count 4.9 X10^3/uL (2.0-7.7); Basophil# 0.04 X10^3/uL; Basophil% 0.5 % (0-1); Eosinophil# 0.17 X10^3/uL; Eosinophils% 2.2 % (0-5); Hemoglobin 10.8 g/dL (13.0-16.5); Lymphocyte # 2.13 X10^3/ul (0.83-4.51); Lymphocyte % 27.3 % (19-41); Mean Corp Hgb Conc 30.9 g/dL (32-36); Mean Corpuscular Hgb 29.9 pg (27.0-32.0); Monocyte# 0.49 X10^3/uL; Monocyte% 6.3 % (0-10); NRBC Flagged by Analyzer 0 % (0-5); Neutrophil # 4.92 X10^3/uL (2.7-7.7); Neutrophil % 62.9 % (47-70); Platelet Count 241 K/mm3 (150-450); RBC Distribution Width CV 16.4 % (11.6-14.6); RBC Distribution Width SD 59.4 fl (35.1-43.9); Red Blood Count 3.61 M/mm3 (4.6-6.2); White Blood Count 7.8 K/mm3 (4.4-11.0)
[2025-03-07 17:36] LABS: Erythrocyte Sedimentation Rate 21 mm/hr (0-20)
[2025-03-07 18:34] LABS: CRP < 3.00 mg/L (0.0-3.0)
[2025-03-09 13:08] LABS: QNTFERON TB Mitogen Value > 10.00 IU/mL (.); QNTFERON TB Nil Value 0.08 IU/mL (.); QNTFERON TB1+ Ag Value 0.06 IU/mL (.); QNTFERON TB2+ Ag Value 0.08 IU/mL (.); QNTIFERON TB Positive Criteria Negative (Negative)
== END | disposition home or self-care (01) ==
LOC: LAB 15:48
PROVIDERS: PCP Internal Medicine; Referring Provider Internal Medicine Gastroenterology; Visit Provider Internal Medicine Gastroenterology
DX: K50.10 Crohn's disease of large intestine without complications (principal)
CPT/HCPCS: 36415; 85025; 85652; 86140; 86480

== ENCOUNTER 2025-04-14 09:53 | Day surgery (SDC) | payer MEDICARE, SELFPAY ==
[2025-04-14] VITALS (7 sets, daily range): BP systolic 97–152; BP diastolic 51–81; PULSE 55–62; RESP 16–18; TEMP 36.2–36.7; O2SAT 99–100; BMI 33.5
--- NOTE | 2025-04-14 10:16 | HP.PCM_ITS ---
HPI - General General Date of Admission: 04/14/25 Date of Service: 04/14/25 Chief Complaint: Crohn's Disease HPI Narrative SIA MENDIOLA, is a 79 M who presents for surveillance of Crohns disease. PCP OV 12.31.22 to established care. Previously diagnosed with GI who diagnosed with Crohn’s disease. Previous PCP note indicates he is well managed with use of Lialda. Colonoscopy 02.26.21 [facility] 5mm TA polyp; somewhat worse sigmoid stricture. Biopsy notes chronic RS colitis without dysplasia. Stool Calprotectin: 3.. 859; 11.. 521; 4..19 129; 12.28. 387 *BGI established 04.18.23 with loose stools and urgency. has concerns regarding extended length of lialda use but he does not feel he is stable enough to stop. Colonoscopy 07.14.23 Active Crohn’s disease of ileum (segment score 3), right colon (segment score 2), transverse colon (segment score 0), left colon (segment score 6), rectum (segment score 0) with total SES-CD aggregate score 11 with active colitis seen on pathology. Contact 08.04.23 with results and need for biochemical, stool and imaging Biochemical [facility] CBC (anemic), CMP, CRP, LDH, ANCA, GAME, CASS (atypical restricted mobility), celiac, Entyvio ab without pertinent abnormality ESR H37, TOM 1:640/centromere ab +, Crohn’s (apANCA, AMCA) Stool [facility] C.difficile, EP, O/P WNL Elastase L100, calprotectin H174, lactoferrin + CT abd/pel 08.16.23 fibrotic lung changes; benign renal cysts with mild perinephritic chronic inflammatory changes Contact 09.01.23 with results. Will get additional bloodwork performed (sent to [facility]). PCP office also contacted and have the CT results for review/attention Biochemical [facility] Titers, Entyvio ab/titer, AMA, ASM, TOM comp not completed. Biochemical 09.11.23 (PCP) CASS + with M-spike OV 09.19.23 reports he is doing well overall. PCP will be repeating bloodwork in January. Nephrology seen yesterday who added Josefina OV 02.25.24 pt reports that he got the approval for Stelara but has not started it yet. Pt reports 3-4 bm a day, usually about 20 minutes after he has eaten something. Pt continues with mesalamine at this time. OV 11 pt reports continued diarrhea that has improved recently due to star ting Cholestyramine BID. Pt continues with Stelara Q8W. Colonoscopy 09.01.24 Stricture at 30 cm proximal to the anus. Biopsied. Dilated. Stool in the sigmoid colon, in the descending colon and in the transverse colon. Fluid aspiration performed. Simple Endoscopic Score for Crohn's Disease: 32, mucosal inflammatory changes secondary to Crohn's disease. Biopsied. The examined portion of the ileum was normal. OV 11.10.24 pt reports that he is no longer having diarrhea. pt reports continued abd pain, gas/bloating, and HB. Frequency of Stelara has been increased to Q4W injections. Contact 12.10.24 presented concerns regarding lower extremities swelling; felt this may be related to Stelara injections Q4wks. Stelara frequency extended back to Q8wks with last injection given on 01.29.25. OV 59. Pt presents in a wheelchair due to reduced walking capabilities from the lower extremity edema. He reports that his "nerves are too tight. They were not this bad before. It hurts even in my hands now. It is shit to be this helpless." He reports having unstable blood glucose levels and that most of diabetic medicines are on hold. He repeatedly states that doctors want to give medicines to "keep him coming to their appointments. I feel great, other than my leg swellings. Doctors give medicine for one thing and creates another problem. I am a pharmacy. My diarrhea is all gone, I don't have any belly pain. I am fixed and want off of this medicine now. I will come back to you if I get my problems back." OV 6.11.30 pt denies GI symptoms of concern at this time, reports continued swelling and discomfort in legs and feet. Pt continues with Q8W stelara. Has a colonoscopy scheduled for 04.14.25 [facility] Medical History Wears partial dentures Easy bruising Heartburn Wears dentures Arthritis Ambulates with cane Low iron Back pain Dietary restriction Former smoker History of edema Decreased dorsalis pedis pulse HTN (hypertension) Lower extremity weakness HLD (hyperlipidemia) Type 2 diabetes mellitus without complications Home Medications Medication Instructions Recorded Last Taken Type aspirin 81 mg tablet,delayed 81 mg PO DAILY 01/21/23 1 10/30/23 History release atorvastatin 40 mg tablet 40 mg PO DAILY 01/21/23 Unkn own History ferrous sulfate 325 mg (65 mg 325 mg PO DAILY 01/21/23 Unknown History iron) tablet Held on 04/13/25. Instructions: ON HOLD FOR 04/14/25 COLONOSCOPY glipizide 10 mg tablet 10 mg PO BID 01/21/23 Unknow n History Held on 08/31/24. Instructions: BG LOW, HOLDING PER PCP lisinopril 20 1 tab PO DAILY 01/21/23 Unkn own History mg-hydrochlorothiazide 25 mg tablet mecobalamin (vitamin B12) 1,000 1,000 mcg PO DAILY Unknown History mcg chewable tablet Held on 04/13/25. Instructions: ON HOLD FOR COLONOSCOPY 04/14/25 metformin 1,000 mg tablet 1,000 mg PO BID 01/21/23 Unk nown History Held on 08/31/24. Instructions: LOW BG, HOLDING FOR NOW PER PCP riboflavin (vitamin B2) 50 mg 50 mg PO DAILY 07/09/23 Unknown History tablet (Vitamin B-2) Held on 04/13/25. Instructions: ON HOLD FOR COLONOSOCPY 04/14/25 dapagliflozin propanediol 10 mg 10 mg PO QDAY 03/25/24 04/11/25 History tablet (Farxiga) Held on 08/31/24. Instructions: HOLDING FOR LOW BG, PER PCP ustekinumab 90 mg/mL subcutaneous 90 mg subcut Q8W #1 mL 12/17/24 Unknown Rx syringe (Stelara) Held on 04/13/25. Instructions: ON HOLD UNTIL F/U WITH GI cholestyramine 4 gram oral powder 4 g PO BID 04/13/25 Unknown History for suspension in a packet (Cholestyramine Light) Allergy/AdvReac Type Severity Reaction Status Date / Time No Known Allergies Allergy Verified 04/13/25 12:41 Surgical History Hx of colonoscopy History of arthroscopic surgery of shoulder H/O discectomy Social History Smoking Status: Former smoker alcohol intake: never ROS Constitutional Constitutional: Denies fatigue, fever(s), poor appetite, weight gain or weight loss Gastrointestinal Gastrointestinal: Denies belching, bloating, change in bowel habits, change in stool character, chewing difficulty, coffee ground emesis, constipation, cramping, diarrhea, dyspepsia, dysphagia, early satiety, excessive flatus, fecal incontinence, heartburn, hematemesis, hematochezia, hemorrhoids, loose stools, melena, nausea, odynophagia, rectal bleeding, tenesmus, vomiting or weight changes Physical Exam Const alert, oriented x3, no apparent distress and healthy appearing General Appearance: cooperative GI normal to inspection, nondistended, normoactive bowel sounds, soft to palpation, non-tender and non-distended Percussion: normal to percussion Rectal Exam: deferred Assessment & Plan Assessment/Plan (1) Crohn's disease of large intestine without complications: PLAN: Assessment and Plan Assessment and Plan (1) Crohn's disease of large intestine without complications: Status: Chronic (2) Crohn's colitis: Status: Inactive Qualifiers: Digestive disease complication type: without complication Qualified Code(s): K50.10 - Crohn's disease of large intestine without complications Orders: Orders [facility] Misc. Today CRP Today K50.10 - Crohn's disease of large intestine without complications Erythrocyte Sed Rate Today K50.10 - Crohn's disease of large intestine without complications Plan He has a longstanding history of colonic Crohn's disease. He has been refractory to 5-ASA therapy being that he has persistent diarrhea with episodes of fecal incontinence. He has no known extraintestinal manifestation of inflammatory bowel disease. He is not steroid naïve. He underwent colonoscopy: The perianal and digital rectal examinations were normal. The Simple Endoscopic Score for Crohn's Disease was determined based on the endoscopic appearance of the mucosa in the following segments: - Ileum: Findings include aphthous ulcers less than 0.5 cm in size, less than 10% ulcerated surfaces, less than 50% of surfaces affected and no narrowings. Segment score: 3. - Right Colon: Findings include no ulcers present, no ulcerated surfaces, 50-75% of surfaces affected and no narrowings. Segment score: 2. - Transverse Colon: Findings include no ulcers present, no ulcerated surfaces, no affected surfaces and no narrowings. Segment score: 0. - Left Colon: Findings include large ulcers 0.5-2 cm in size, 10-30% ulcerated surfaces, less than 50% of surfaces affected and a single narrowing that can be passed. Segment score: 6. - Rectum: Findings include no ulcers present, no ulcerated surfaces, no affected surfaces and no narrowings. Segment score: 0. - Total SES-CD aggregate score: 11. Biopsies were taken with a cold forceps for histology. Verification of patient identification for the specimen was done. Estimated blood loss was minimal. Impression: - Simple Endoscopic Score for Crohn's Disease: 11, mucosal inflammatory changes secondary to Crohn's disease. Biopsied. His pathology from his colonoscopy was consistent with chronic active Crohn's disease. His ESR, CRP along with fecal lactoferrin and fecal calprotectin were all elevated. His stool for enteric pathogens and C. difficile were negative. He still has not 4-5 bowel movements a day with breakthrough symptoms. After long talk with him and his from recommend Stelara therapy. He is okay with this plan. We will continue on cholestyramine therapy for now. His Stelara is helping. However, he did have significant amount of inflammation on his repeat colonoscopy which increases simple endoscopic score up to a 15. He is on Stel lydia every 8 weeks and will decrease it down to every 4 weeks. We will recheck inflammatory markers and stool test in approximately 8 to 12 weeks.
[2025-04-14] MEDS: Lactated Ringers 1,000 ML 15 ML IV (10:19)
--- NOTE | 2025-04-14 10:51 | PRE.ANES_ITS ---
ASA Classification* ASA Classification ASA Classification: 2 Assessment & Plan Anesthesia* Anesthesia Assessment Anesthesia Assessment: Discussed sedation and/or anesthesia options, risks, benefits, and alternatives with patient/parents/legal guardian/POA. Questions invited. The patient/parents/legal guardian/POA seems to understand and agrees to proceed with anesthesia plan. Reviewed the physical assessment, medical history, allergy history and patient home medications list prior to surgery/procedure/anesthetic and documented any changes. Performed airway and anesthesia risk assessments. Anesthesia Type Anesthesia Type: MAC History Source History Obtained from:: Patient and Chart Anesthesia Focused Assessment* Temperature: 97.2 F Pulse Rate: 62 Blood Pressure: 152/71 Respiratory Rate: 18 Pulse Ox: 100 Oxygen Delivery Method: Room Air Airway Assessment Mouth opens: >3 cm Mallampati Score: II Teeth Condition: Partial (Lower) Neck Range of motion (ROM): Full ROM Labs Anesthesia Preop lab: CBC WBC 7.8 K/mm3 (4.4-11.0) 03/07/25 16:04 03/07/25 RBC 3.61 M/mm3 (4.6-6.2) L 03/07/25 16:04 03/07/25 Hgb 10.8 g/dL (13.0-16.5) L 03/07/25 16:04 5 Hct 35.0 % (40-54) L 03/07/25 16:04 03/07/25 Plt Count 241 K/mm3 (150-450) 03/07/25 16:04 03/07/25 CHEMISTRY POC Glucose 135 mg/dL (74-106) H 09/01/24 11:43 09/01/24 COAG Pre-Assessment Diagnosis/Proposed Procedure Planned Operative Procedure(s): COLONOSCOPY Anesthesia History Anesthesia History - aerodynamicist: Anesthesia History - aerodynamicist Hx Hospitalization No 04/13/25 12:47 Any Problems With Anesthesia No 04/13/25 12:47 Cholinesterase deficiency No 04/13/25 12:47 You/Your Family Experience No 04/13/25 12:47 fever (hyperthermia) with Relationship Recent Exposure to Contagious No 04/14/25 10:20 Disease Does patient have nerve No 04/13/25 12:47 stimulator Patient instructed to have device shut off --Does patient have Pacemaker No 04/14/25 10:20 or ICD? When Was Last Pacemaker Check QUESTION #4 FULL TEXT: You/Your Family Experience fever (hyperthermia) with Anesthesia Last Oral Intake Last Oral intake: Last Oral Intake NPO since 07:00 04/14/25 10:20 Meds taken in AM with sips of No 04/14/25 10:20 water? Meds patient instructed to take am of surgery PONV PONV - aerodynamicist: PONV - aerodynamicist Female No 04/13/25 12:47 HX of Motion Sickness No 04/13/25 12:47 HX of N/V After Surgery No 04/13/25 12:47 Non-Smoker Yes 04/13/25 12:47 Duration of Surgery greater No 04/13/25 12:47 than 60 minutes Number of Risk Factors 1 04/13/25 12:47 PONV Score Low Risk 04/13/25 12:47 Height & Weight Height & Weight: Anesthesia: Height & Weight Height 5 ft 8 in 04/14/25 10:20 Weight: 100 kg 04/14/25 10:20 Body Mass Index (BMI) 33.5 04/14/25 10:20 Respiratory Assessment Respiratory Assessment - aerodynamicist: Respiratory Tract Infection Hx - aerodynamicist Hx Respiratory Tract Infection No 04/13/25 12:47 STOP Sleep Apnea STOP Sleep Apnea - aerodynamicist: STOP Sleep Apnea - aerodynamicist Hx Hypertension Yes 04/13/25 12:47 Hx Sleep Apnea No 04/13/25 12:47 CPAP BIPAP Do you snore loudly (louder No 04/13/25 12:47 than talking or can be heard Do you often feel tired/ No 04/13/25 12:47 fatigued/ sleepy during daytime? Has anyone observed you stop No 04/13/25 12:47 breathing during sleep? STOP Results Negative 04/13/25 12:47 QUESTION #5 FULL TEXT : Do you snore loudly (louder than talking or can be heard through closed doors)? Tobacco Use History Tobacco Use History - aerodynamicist: Tobacco Use History - aerodynamicist Tobacco Use Smoking Status Former smoker 04/13/25 12:47 Hx Tobacco Use No 04/13/25 12:47 Years Smoking Packs Smoked per Day Smoking Cessation Date was No - quit smoking greater 04/13/25 12:47 within the last 15 years than 15 years ago Hx Smoking Cessation Date 10/06/94 04/13/25 12:47 Hx Smoking Cessation Counseling Hematologic Medial History Hematologic Hx - aerodynamicist: Hematologic Medical Hx - dispensing operator Hx of Blood Transfusion Yes 04/13/25 12:47 Hx of Transfusion in last 3 No 04/13/25 12:47 Months Date of Last Transfusion (if within last 3 months) Ever experience any problems No 04/13/25 12:47 with transfusion(s)? Specify any problems Hx of Preganancy in last 3 N/A 04/13/25 12:47 Months Nurse Filling Out Transfusion MGRIFFITH 04/13/25 12:47 & Questions: Date: 04/13/25 04/13/25 12:47 Time: 12:50 04/13/25 12:47 Patient unable to answer at this time (ie. confused, unrespo /Reproduction History /Reproductive History - aerodynamicist: /Reproductive Hx- aerodynamicist Hx Now Gestational Age (in weeks): EDC: Hx Hx Para Hx Section SAB No 08/31/24 10:46 Active Medications Active Medications: Current Medications Generic Name Dose Route Start Last Admin Trade Name Freq PRN Reason Stop Dose Admin Lactated Ringer's 1,000 mls @ 15 mls/hr 04/14/25 10:15 04/14/25 10:19 IV 15 mls/hr .Q48H JOELLEN Administration PFSH Medical History Wears partial dentures Easy bruising Heartburn Wears dentures Arthritis Ambulates with cane Low iron Back pain Dietary restriction Former smoker History of edema Decreased dorsalis pedis pulse HTN (hypertension) Lower extremity weakness HLD (hyperlipidemia) Type 2 diabetes mellitus without complications Home Medications Medication Instructions Recorded Last Taken Type aspirin 81 mg tablet,delayed 81 mg PO DAILY 01/21/23 1 10/30/23 History release atorvastatin 40 mg tablet 40 mg PO DAILY 01/21/23 Unkn own History ferrous sulfate 325 mg (65 mg 325 mg PO DAILY 01/21/23 Unknown History iron) tablet Held on 04/13/25. Instructions: ON HOLD FOR 04/14/25 COLONOSCOPY glipizide 10 mg tablet 10 mg PO BID 01/21/23 Unknow n History Held on 08/31/24. Instructions: BG LOW, HOLDING PER PCP lisinopril 20 1 tab PO DAILY 01/21/23 Unkn own History mg-hydrochlorothiazide 25 mg tablet mecobalamin (vitamin B12) 1,000 1,000 mcg PO DAILY Unknown History mcg chewable tablet Held on 04/13/25. Instructions: ON HOLD FOR COLONOSCOPY 04/14/25 metformin 1,000 mg tablet 1,000 mg PO BID 01/21/23 Unk nown History Held on 08/31/24. Instructions: LOW BG, HOLDING FOR NOW PER PCP riboflavin (vitamin B2) 50 mg 50 mg PO DAILY 07/09/23 Unknown History tablet (Vitamin B-2) Held on 04/13/25. Instructions: ON HOLD FOR COLONOSOCPY 04/14/25 dapagliflozin propanediol 10 mg 10 mg PO QDAY 03/25/24 04/11/25 History tablet (Farxiga) Held on 08/31/24. Instructions: HOLDING FOR LOW BG, PER PCP ustekinumab 90 mg/mL subcutaneous 90 mg subcut Q8W #1 mL 12/17/24 Unknown Rx syringe (Stelara) Held on 04/13/25. Instructions: ON HOLD UNTIL F/U WITH GI cholestyramine 4 gram oral powder 4 g PO BID 04/13/25 Unknown History for suspension in a packet (Cholestyramine Light) Allergy/AdvReac Type Severity Reaction Status Date / Time No Known Allergies Allergy Verified 04/13/25 12:41 Surgical History Hx of colonoscopy History of arthroscopic surgery of shoulder H/O discectomy Social History Smoking Status: Former smoker alcohol intake: never Review of Systems (Anesthesia) ROS Narrative System reviewed and no additional complaints, except as documented.
--- NOTE | 2025-04-14 11:00 | COLBX_PTH ---
PATIENT: SIA MENDIOLA LOC: EN U#:[id number] AGE/SX: 79/M ROOM: RE04/14/[address]: Dr. Enmanuel Michele DO : 1945 BED: DIS: 04/14/2025 SPEC #: [id number] RECD: 04/14/25 12:27 STATUS: CASSY RERamonita #: [id number] WILLAM: 04/14/25 11:[address]: Enmanuel Michele DEPT: SURGICAL PATHOLOGY RECD BY: Duc Salazar ENTERED: 04/14/25 14:41 SP TYPE: COLON BX OTHR DR: Dr. Justin Aguilar MD Tissues: A - Ileum, NOS B - COLON BIOPSY C - Transverse colon D - COLON BIOPSY E - Sigmoid colon biopsy F - Rectum, NOS Procedures: Immunohistochemical Stains Surgery Specimen Level IV HEADER OPERATION: Colonoscopy with biopsy PRE-OP DIAGNOSIS: Crohn's disease of large intestine without complications TISSUE SUBMITTED: A- Terminal ileum biopsy, B- Right colon biopsy, C- Transverse colon biopsy, D- Left colon biopsy, E- Sigmoid colon biopsy, F- Rectum colon biopsy MICROSCOPIC DIAGNOSIS A. Small intestine, terminal ileum, biopsy: * Small bowel mucosa with no pathologic change B. Right colon, biopsy: * Mild active chronic colitis * Negative for dysplasia C. Transverse colon, biopsy: * Mild active chronic colitis * Negative for dysplasia D. Left colon, biopsy: * Active chronic colitis with focal erosion (See note) * Negative for dysplasia E. Sigmoid colon, biopsy: * Active chronic colitis with focal erosion (See note) * Negative for dysplasia F. Rectum, colon, biopsy: * Inactive colitis * Negative for dysplasia Note: Staining for CMV on part D and E is in progress and will be reported as an addendum MICROSCOPIC DESCRIPTION Slides are reviewed. GROSS DESCRIPTION A. Received in fixative is one container labeled with the patient's name and designated "Terminal ileum biopsy." The specimen consists of multiple irregular fragments of light devlin soft tissue that in aggregate measure 0.1 to 0.4 cm. The specimen is totally submitted in one cassette. B. Received in fixative is one container labeled with the patient's name and designated "Right colon biopsy." The specimen consists of multiple irregular fragments of light devlin soft tissue that in aggregate measure <0.1 to 0.7 cm. The specimen is totally submitted in one cassette. C. Received in fixative is one container labeled with the patient's name and designated "Transverse colon biopsy." The specimen consists of multiple irregular fragments of light devlin soft tissue that in aggregate measure 0.2 to 0.4 cm. The specimen is totally submitted in one cassette. D. Received in fixative is one container labeled with the patient's name and designated "[]." The specimen consists of multiple irregular fragments of light devlin soft tissue that in aggregate measure 0.1 to 0.4 cm. The specimen is totally submitted in one cassette. E. Received in fixative is one container labeled with the patient's name and designated "Sigmoid colon biopsy." The specimen consists of multiple irregular fragments of light devlin soft tissue that in aggregate measure <0.1 to 0.5 cm. The specimen is totally submitted in one cassette. F. Received in fixative is one container labeled with the patient's name and designated "Rectum colon biopsy." The specimen consists of two irregular fragments of light devlin soft tissue that in aggregate measure 0.3 and 0.4 cm. The specimen is totally submitted in one cassette. SAMANTHA/ 04/14/2025 CPT:32579p9 ,[id number] ADDENDUM ADDENDUM ADDENDUM ADDENDUM ADDENDUM ADDENDUM ADDENDUM ADDENDUM ADDENDUM ADDENDUM 05/04/2025 14:27 ADDENDUM 05/04/2025 14:27 ADDENDUM 05/04/2025 14:27 ADDENDUM 05/04/2025 14:27 ADDENDUM 05/04/2025 14:27 On parts D and E the CMV stains are negative All matched controls reacted appropriately. These tests were developed and their performance characteristics determined by [facility]. They may not have been cleared or approved by the [place]. Food and Drug Administration. The FDA has determined that such clearance or approval is not necessary. The above immunohistochemical/dualISH markers are viewed by the Pathologist.
--- NOTE | 2025-04-14 12:08 | PCM.POST.ANE ---
Anesthesia: Postop Eval I Current Vital Signs Temperature: 98.1 F Pulse Rate: 61 Blood Pressure: 97/81 Respiratory Rate: 16 Pulse Ox: 99 Oxygen Delivery Method: Room Air Assessment Airway patent: Yes Spontaneous unlabored respirations: Yes Mental status: Awake and Calm nausea: No Vomiting: No Anesthesia Complication: No Fluid Hydration Crystalloid volume administer (ml): 500 Total IV fluid infused: 500 Progress Note Anesthesia document: Postop Eval 1 completed: Yes
--- NOTE | 2025-04-14 12:14 | OP.COLON_ITS ---
Patient Name: Fidel Harrison Procedure Date: 04/14/2025 11:32 AM Date of : 1945 Age: 79 Procedure: Colonoscopy Indications: Crohn's disease of the small bowel and colon, Disease activity assessment of Crohn's disease of the small bowel and colon, Assess therapeutic response to therapy of Crohn's disease of the small bowel and colon Providers: Enmanuel Michele DO Medicines: Monitored Anesthesia Care Patient Profile: This is an 79 year old male. Refer to note in patient chart for documentation of history and physical. Last Colonoscopy: within the past 3 years. Complications: No immediate complications. Procedure: Pre-Anesthesia Assessment: - Prior to the procedure, a History and Physical was performed, and patient medications and allergies were reviewed. The patient is competent. The risks and benefits of the procedure and the sedation options and risks were discussed with the patient. All questions were answered and informed consent was obtained. Patient identification and proposed procedure were verified by the physician in the pre-procedure area. Mental Status Examination: alert and oriented. Airway Examination: normal oropharyngeal airway and neck mobility. Respiratory Examination: clear to auscultation. CV Examination: normal. Prophylactic Antibiotics: The patient does not require prophylactic antibiotics. Prior Anticoagulants: The patient has taken no anticoagulant or antiplatelet agents except for NSAID medication. ASA Grade Assessment: II - A patient with mild systemic disease. After reviewing the risks and benefits, the patient was deemed in satisfactory condition to undergo the procedure. The anesthesia plan was to use monitored anesthesia care (MAC). Immediately prior to administration of medications, the patient was re-assessed for adequacy to receive sedatives. The heart rate, respiratory rate, oxygen saturations, blood pressure, adequacy of pulmonary ventilation, and response to care were monitored throughout the procedure. The physical status of the patient was re-assessed after the procedure. After I obtained informed consent, the scope was passed under direct vision. Throughout the procedure, the patient's blood pressure, pulse, and oxygen saturations were monitored continuously. The colonoscope was introduced through the anus and advanced to the terminal ileum. The colonoscopy was performed without difficulty. The patient tolerated the procedure well. The quality of the bowel preparation was adequate. The terminal ileum, ileocecal valve, appendiceal orifice, and rectum were photographed. Scope In: 11:45:59 AM Scope Withdrawal Time 0 hours 11 minutes 25 seconds Scope Out: 11:59:04 AM Total Procedure Duration Time 0 hours 13 minutes 5 seconds Findings: The perianal and digital rectal examinations were normal. The Simple Endoscopic Score for Crohn's Disease was determined based on the endoscopic appearance of the mucosa in the following segments: - Ileum: Findings include no ulcers present, no ulcerated surfaces, less than 50% of surfaces affected, a single narrowing that can be passed and no ulcers present, no ulcerated surfaces, no affected surfaces and no narrowings. Segment score: 2. - Right Colon: Findings include aphthous ulcers less than 0.5 cm in size, no ulcerated surfaces, greater than 75% of surfaces affected, a single narrowing that can be passed and no ulcers present, no ulcerated surfaces, no affected surfaces and no narrowings. Segment score: 5. - Transverse Colon: Findings include aphthous ulcers less than 0.5 cm in size, no ulcerated surfaces, greater than 75% of surfaces affected, no narrowings and no ulcers present, no ulcerated surfaces, no affected surfaces and no narrowings. Segment score: 4. - Left Colon: Findings include aphthous ulcers less than 0.5 cm in size, less than 10% ulcerated surfaces, greater than 75% of surfaces affected and multiple narrowings that can be passed. Segment score: 7. - Rectum: Findings include no ulcers present, less than 10% ulcerated surfaces, less than 50% of surfaces affected, no narrowings and no ulcers present, no ulcerated surfaces, no affected surfaces and no narrowings. Segment score: 2. - Total SES-CD aggregate score: 20. Biopsies were taken with a cold forceps for histology. Verification of patient identification for the specimen was done. Estimated blood loss was minimal. A patchy area of the terminal ileum was congested. Biopsies were taken with a cold forceps for histology. Verification of patient identification for the specimen was done. Estimated blood loss was minimal. Impression: - Simple Endoscopic Score for Crohn's Disease: 20, mucosal inflammatory changes secondary to Crohn's disease. Biopsied. - Congested mucosa in the terminal ileum. Biopsied. Recommendation: - Discharge patient to home. - Resume previous diet. - Continue present medications. - Await pathology results. - Repeat colonoscopy to check healing. - Return to GI office. Procedure Code(s): --- Professional --- 66816, Colonoscopy, flexible; with biopsy, single or multiple CPT copyright 2021 [employer]. All rights reserved. The codes documented in this report are preliminary and upon indoor plant technician review may be revised to meet current compliance requirements. Enmanuel Michele DO 04/14/2025 12:13:31 PM This report has been signed electronically. Number of Addenda: 0 Note Initiated On: 04/14/2025 11:32 AM
--- NOTE | 2025-04-14 12:14 | OP.CCLET_ITS ---
04/14/2025 Britton Torres Re : Colonoscopy procedure for Fidel Harrison Dear Brian This procedure was performed on April. My impressions and recommendations are as follows: Impressions : - Simple Endoscopic Score for Crohn's Disease: 20, mucosal inflammatory changes secondary to Crohn's disease. Biopsied. - Congested mucosa in the terminal ileum. Biopsied. Recommendations : - Discharge patient to home. - Resume previous diet. - Continue present medications. - Await pathology results. - Repeat colonoscopy to check healing. - Return to GI office. My findings are described in the full procedure note, which is enclosed. If I can be of further assistance, please feel free to contact me at . Sincerely, Enmanuel Michele, 04/14/2025 12:13:31 PM This report has been signed electronically.
== END 2025-04-14 12:57 | disposition home or self-care (01) ==
LOC: EN 09:53 → AC 09:54
PROVIDERS: PCP Internal Medicine; Referring Provider Internal Medicine; Visit Provider Internal Medicine Gastroenterology
PROC: 0DJD8ZZ Inspection of Lower Intestinal Tract, Via Natural or Artificial Opening Endoscopic (ICD-10-PCS; CPT 45378; principal; 2025-04-14 10:55)
DX: K50.90 Crohn's disease, unspecified, without complications (principal); E11.9 Type 2 diabetes mellitus without complications; E78.5 Hyperlipidemia, unspecified; I10 Essential (primary) hypertension; K63.89 Other specified diseases of intestine; Z79.84 Long term (current) use of oral hypoglycemic drugs; Z79.82 Long term (current) use of aspirin; Z79.899 Other long term (current) drug therapy; Z87.891 Personal history of nicotine dependence
CPT/HCPCS: 45380; 82962; 88305; 88342; J2405

== ENCOUNTER → 2025-09-15 | Outpatient (CLI) | payer MEDICARE, SELFPAY ==
[2025-09-15 17:37] LABS: Hematocrit 35.9 % (40-54); Hemoglobin 11.4 g/dL (13.0-16.5); Immature Granulocytes Count 0.060 X10^3/uL (0.0-0.0); Mean Corp Hgb Conc 31.8 g/dL (32-36); Mean Corpuscular Volume 95.7 fL (80-94); Mean Platelet Vol. 10.0 fl (6.2-12.0); NRBC Flagged by Analyzer 0 % (0-5); Platelet Count 219 K/mm3 (150-450); RBC Distribution Width CV 14.1 % (11.6-14.6); RBC Distribution Width SD 49.1 fl (35.1-43.9); Red Blood Count 3.75 M/mm3 (4.6-6.2); White Blood Count 9.8 K/mm3 (4.4-11.0)
[2025-09-15 18:27] LABS: AST(SGOT) 21 U/L (<=37); Alanine Aminotransfer ALT/SGPT 13 U/L (<=46); Albumin, Serum 4.1 g/dL (3.4-4.8); Alkaline Phosphatase 60 U/L (40-129); Anion Gap 14 (5-15); BUN 28 mg/dL (4-19); BUN/Creat Ratio 16.2 RATIO (10-20); Calcium,Total 9.6 mg/dL (7.6-11.0); Carbon Dioxide 21.5 mmol/L (21.0-32.0); Chloride 108 mmol/L (98-108); Globulin 3.6 g/dL (2.2-4.2); Glucose 219 mg/dL (70-99); Potassium 5.1 mmol/L (3.3-5.1)
[2025-09-15 18:30] LABS: CRP < 3.00 mg/L (0.0-3.0)
== END | disposition home or self-care (01) ==
PROVIDERS: PCP Internal Medicine; Referring Provider Internal Medicine Gastroenterology; Visit Provider Internal Medicine Gastroenterology
DX: D64.9 Anemia, unspecified (principal); K50.10 Crohn's disease of large intestine without complications
CPT/HCPCS: 36415; 80053; 85025; 85652; 86140